=== PATIENT | male | born 1950 | race Caucasian/White ===

== ENCOUNTER → 2016-07-28 | Outpatient (CLI) | payer OTHER ==
[~2016-07-28] MED LIST: Z.0.NO CURRENT MEDS
[2016-07-28 07:30] LABS: BICARBONATE 30.9 MEQ/L (21.0-32.0); HDL CHOLESTEROL 63.1 MG/DL (40.0-60.0); INDIRECT BILIRUBIN 0.8 MG/DL (0.0-0.8); POTASSIUM 4.4 MEQ/L (3.5-5.1)
== END ==
LOC: CLAB 06:32
PROVIDERS: ATTEND Family Medicine
DX: I10 Essential (primary) hypertension (principal); E78.5 Hyperlipidemia, unspecified; Z12.5 Encounter for screening for malignant neoplasm of prostate
CPT/HCPCS: 36415; 80048; 80061; 80076; 84153

== ENCOUNTER → 2017-04-17 | Outpatient (CLI) | payer OTHER ==
[~2017-04-17] MED LIST changes: +ALBUAER3 INH; +ASPI-516 CHEW; +BENZ100 PO; +FLUT1SPR5 EACH NARE; +MONT10TA4 PO; +MULT-65 PO; +SIMV40TA PO; +VALS1TAB65 PO
[2017-04-17 08:50] LABS: GLUCOSE,FASTING 106 MG/DL (74-99)
[2017-04-17 18:31] LABS: HEMOGLOBIN A1C 6.1 % (4.3-6.0)
== END ==
LOC: CLAB 07:51
PROVIDERS: ATTEND Family Medicine
DX: R73.9 Hyperglycemia, unspecified (principal); R97.20 Elevated prostate specific antigen [PSA]
CPT/HCPCS: 36415; 82947; 83036; 84153